=== PATIENT | female | born 1985 | race Caucasian/White ===

== ENCOUNTER → 2019-04-28 | Outpatient (CLI) | payer BC ==
[~2019-04-28] MED LIST: MAGN100T6 PO; NORG1TAB15 PO; RANI75TA30 PO; VENL37.56 PO; VNL75CCR PO
--- NOTE | 2019-04-28 17:53 | Diagnostic Imaging Report ---
PROCEDURE: US Thyroid. TECHNIQUE: Multiple real-time grayscale images were obtained of the thyroid in various projections. INDICATION: Thyroid nodule. COMPARISON: No prior studies are available for comparison. FINDINGS: Right lobe of the thyroid measures 4.4 x 1.2 x 1.6 cm and the left lobe measures 4.0 x 1.4 x 1.4 cm. Isthmus is 3 mm in thickness. Left lobe of the thyroid demonstrates homogeneous echotexture. No mass is seen. Right lobe does contain a small nodule at the junction with the isthmus measuring 4 mm x 3 mm x 5 mm. No dominant thyroid mass is detected. IMPRESSION: Subcentimeter right lobe thyroid nodule. No dominant thyroid mass is detected. Dictated by: Dictated on workstation # [id number]
== END ==
LOC: RAD 15:09
PROVIDERS: ATTEND Internal Medicine
DX: E04.1 Nontoxic single thyroid nodule (principal)
CPT/HCPCS: 76536

== ENCOUNTER → 2019-07-25 | Outpatient (CLI) | payer BC ==
--- NOTE | 2019-07-25 13:53 | Diagnostic Imaging Report ---
PROCEDURE: US Non-ob pelvis comp/trans. TECHNIQUE: Multiple realtime grayscale images were obtained of the pelvis in various projections endovaginally. Transabdominal imaging was also performed. INDICATION: Abnormal uterine bleeding. FINDINGS: Uterus measures 5.9 x 3.9 x 2.8 cm. Endometrium is 8 mm in thickness. No myometrial mass is detected. Right ovary measures 3.4 x 2.7 x 2.7 cm and the left ovary measures 2.2 x 2.2 x 1.1 cm. There are bilateral ovarian cysts, largest on the right. Cyst in the right ovary measures 2.3 x 2.4 x 2.8 cm. A second cyst measures 2.0 x 2.6 x 2.1 cm. Largest cyst on the left measures 1.5 x 0.5 x 1.4 cm. There is blood flow to the ovaries. No free fluid is seen. IMPRESSION: Bilateral ovarian cysts. No other significant abnormality is detected. Dictated by: Dictated on workstation # [id number]
== END ==
LOC: RAD 12:43
PROVIDERS: ATTEND Obstetrics & Gynecology
DX: N93.8 Other specified abnormal uterine and vaginal bleeding (principal); N83.201 Unspecified ovarian cyst, right side; N83.202 Unspecified ovarian cyst, left side
CPT/HCPCS: 76830; 76856

== ENCOUNTER → 2020-11-01 | Outpatient (CLI) | payer BC ==
--- NOTE | 2020-11-01 17:29 | Diagnostic Imaging Report ---
INDICATION: Peripheral vascular disease Left leg arterial Doppler study performed in the routine fashion with color flow Doppler and waveform analysis. Flow is triphasic or biphasic throughout. There is moderate velocity elevation in the left common femoral artery of 185 mL. Velocities were within normal range in the remainder of the left leg. IMPRESSION: Moderate velocity elevation in left common femoral artery of questionable significance. Consider CTA if clinically warranted. Remaining velocities were unremarkable. Dictated by: Dictated on workstation # [id number]
== END ==
LOC: RAD 14:39
PROVIDERS: ATTEND Internal Medicine
DX: I73.9 Peripheral vascular disease, unspecified (principal)
CPT/HCPCS: 93926

== ENCOUNTER → 2020-11-25 | Outpatient (CLI) | payer BC ==
[~2020-11-25] MED LIST changes: +CATHETER FLUSH 10 ML SYR IV PRN; +HOLD METFORMIN - RECEIVED CONTRAST 20 ML VIAL IV SCH; +IOHEXOL 350 MG/ML 150 ML (OMNIPAQUE 350) VIAL IV ONE; +NS 100 ML (IVPB) BAG IV ONE
--- NOTE | 2020-11-25 18:49 | Diagnostic Imaging Report ---
INDICATION: 35-year-old female with intermittent claudication of both lower extremities. COMPARISONS: None FINDINGS: The visualized abdominal aorta is widely patent. There is normal origin of the visceral arteries. There is some minimal soft plaque in the infrarenal aorta but no evidence of hemodynamically significant stenosis. Both common iliac, external iliac and common femoral arteries are widely patent. RLE: Preop on the right, there is some minimal soft plaque in the distal LINUX ADMINISTRATOR. There is normal LINUX ADMINISTRATOR bifurcation. The right SFA is widely patent. The popliteal arteries also widely patent with normal trifurcation vessels which are all patent to the right ankle. LLE: The left LINUX ADMINISTRATOR is widely patent. The left SFA and profunda femoris, popliteal arteries are widely patent. There is normal trifurcation vessel origins of the left calf. The anterior tibial, posterior tibial and common peroneal arteries are patent to the left ankle. The visualized liver shows uniform attenuation. The kidneys show normal perfusion. There is no evidence of obstructive uropathy. The visualized luminal viscera appear grossly normal. There is a moderate amount of fecal load in the proximal colon. Uterus and adnexa are unremarkable. IMPRESSION: Unremarkable CTA lower extremities with no evidence of hemodynamically significant stenosis seen. There is some very minimal soft plaque in the distal aorta and proximal right LINUX ADMINISTRATOR but these are not felt to be hemodynamically significant. Additional nonemergent findings as described above. Dictated by: Dictated on workstation # [id number]
== END ==
LOC: RAD 16:45
PROVIDERS: ATTEND Internal Medicine
DX: I70.213 Atherosclerosis of native arteries of extremities with intermittent claudication, bilateral legs (principal)
CPT/HCPCS: 73706

== ENCOUNTER → 2023-07-26 | Outpatient (CLI) | payer BC ==
[~2023-07-26] MED LIST changes: -CATHETER FLUSH 10 ML SYR IV PRN; -HOLD METFORMIN - RECEIVED CONTRAST 20 ML VIAL IV SCH; -IOHEXOL 350 MG/ML 150 ML (OMNIPAQUE 350) VIAL IV ONE; -NS 100 ML (IVPB) BAG IV ONE
--- NOTE | 2023-07-26 18:19 | Diagnostic Imaging Report ---
3-D bilateral screening mammogram with CAD. This is the patient's baseline study. At this time there are no current complaints. The breasts are predominantly fatty. There is no primary or secondary sign of malignancy noted. On the MLO view of the right breast mass, in the superior aspect of the breast at middle depth, there is a small asymmetry. This does not persist on the tomographic images. There is no corresponding abnormality seen on the craniocaudad projection, either. Consequently, I suspect this finding is related to fibroglandular tissue alone. Impression: 1. There is no evidence of malignancy. 2. The patient should have her annual bilateral screening mammogram on schedule in July of 2024 ACR BI-RADS Category 1: Negative. Result letter will be mailed to the patient. Note: At least 10% of breast cancer is not imaged by mammography. Dictated by: Dictated on workstation # [id number]
== END ==
LOC: RAD 15:45
PROVIDERS: ATTEND Internal Medicine
DX: Z12.31 Encounter for screening mammogram for malignant neoplasm of breast (principal)
CPT/HCPCS: 77063; 77067